=== PATIENT | female | born 1995 | race Caucasian/White ===

== ENCOUNTER 2019-07-19 08:22 | Inpatient (IN) ==
[2019-07-19] MEDS ORDERED: OXYTOCIN/DEXTROSE 5%-WATER 30 UNITS/500 ML BAG IV ONE (09:56)
[2019-07-19] MEDS ORDERED: DEXTROSE 5%-LACTATED RINGERS 1,000 ML IV PRN (09:56)
[2019-07-19] MEDS ORDERED: ONDANSETRON 4 MG TAB.RAPDIS PO PRN (09:56)
[2019-07-19] MEDS: RINGER'S SOLUTION,LACTATED 1,000 ML IV ONE ×2 (10:05→20:18)
--- NOTE | 2019-07-19 14:42 | HP ---
Chief Complaint - Chief Complaint Date of Service: 07/19/19 Time of Service: 14:31 Chief Complaint: LOF History of Present Illness: 23 yo at 37 5/7 wks presents to L&D for SROM with early labor. Patient had gush of fluid around 729, followed by constant LOF down leg since then. She also complains of mild cramping. This complicated by anemia and new onset arrhythmia noticed yesterday when being evaluated for decreased FM. The arrhythmia is an occasional intermittent skip beat. Rh positive Rubella immune GBS negative Medical History (Updated 07/19/19 @ 11:44 by Iveth Monaco RN) Anemia (Acute) Onset Date: 12/27/18 w/ Body piercing Onset Date: Unknown Stye Onset Date: ~2009 w/removal Surgical History: Surgical History (Updated 12/23/18 @ 16:42 by Tequila Allen RN) No Surgical History Onset Date: 12/23/18 Family History: Family History (Updated 12/23/18 @ 16:43 by Tequila Allen RN) Mother Alive and well Father Diabetes Type II Hypertension Social History: (Last Reviewed 07/19/19 @ 14:37 by Giovanny Nova DO) Social History: adopted: No senior care: No Marital status: household members: spouse, family number of children: 0 current occupational status: employed current occupation: RN current occupational exposures/hazards: No Highest education level completed: Associate degree: academi Sexually Active: Yes Service: No Tobacco: Smoking Status: Never smoker Alcohol: alcohol intake: current alcohol intake frequency: holiday/special occasion details: No alcohol since + UPT Substance Use: substance use type: does not use Dietary Habits: caffeine: Yes caffeine comment: 1/week Exercise: frequency: does not exercise Belén/Voodoo: agree to transfusion: Yes Review Of Systems (GEN) - Review of Systems Generalized/Overall Review: Present: No Symptoms Reported EENTM: Present: No Symptoms Reported Respiratory: Present: No Symptoms Reported Cardiac: Present: No Symptoms Reported Abdominal: Present: Other - cramping/contractions Genitourinary: Present: Other - LOF Musculoskeletal: Present: No Symptoms Reported Neurological: Present: No Symptoms Reported Skin: Present: No Symptoms Reported Allergies/Adverse Reactions: Allergies Allergy/AdvReac Type Severity Reaction Status Date / Time No Known Allergies Allergy Verified 07/19/19 08:44 Home Medications: HOME MEDICATIONS vitamins no.121-iron 28 mg-folic acid 800 mcg tablet 1 tab PO DAILY tab 12/23/18 [Last Taken Unknown] ferrous sulfate 325 mg (65 mg iron) tablet 325 mg PO DAILY #30 tab 12/28/18 [Last Taken Unknown] ascorbic acid (vitamin C) 500 mg tablet 500 mg PO DAILY 05/01/19 [Last Taken Unknown] breast pump See Dose Instructions .ROUTE .MEDSUPPLY #1 ea 06/08/19 [Last Taken Unknown] Exam - Exam Vital Signs: Vital Signs - Last Taken Temp 37.1 C 07/19/19 09:03 Pulse 89 07/19/19 09:03 Resp 18 07/19/19 09:03 BP 142/81 H 07/19/19 09:03 Pulse Ox 100 07/19/19 09:03 Constitutional: Present: Alert, Oriented x3, Cooperative ENT Exam: Present: hearing grossly normal Breasts: Present: Exam deferred Respiratory: Present: lungs clear, no respiratory distress Cardiovascular/Chest: Present: regular rate, rhythm, no edema Abdomen: Present: soft, nontender, other - Gravid /Rectal: Present: Other - Cervix 1/50/-2, Clear fluid, nitrazine positive Extremity: Present: no pedal edema, no calf tenderness Skin Exam: Present: normal color, warm/dry, no cyanosis Neurologic: Present: alert, normal mood/affect, oriented x 3 Appearance: Present: appropriate appearance, appropriate insight Eye contact: Present: cooperative, good eye contact Thoughts: Present: normal thought pattern Diagnostic Studies: NST reactive. Assessment/Plan - Assessment/Plan (1) Rupture of membranes with clear amniotic fluid Assessment: Admit for routine management of labor. Pitocin augmentation PRN. Epidural PRN. evaluation after delivery. Problem: Acute (2) 37 or more weeks gestation of Problem: Acute (3) Anemia Problem: Acute Qualifiers: Anemia type: iron deficiency Iron deficiency anemia type: inadequate dietary iron intake Qualified Code(s): D50.8 - Other iron deficiency anemias (4) cardiac arrhythmia Assessment: irregular, intermittent, no calvin or tachy arrhythmia. Evaluate PP. Problem: Acute
--- NOTE | 2019-07-19 14:45 | PN ---
Progess Note - Interim Date: 07/19/19 Time: 14:43 Narrative: 07/19/19 14:43 Patient rating contractions 5 out of 10. Vital signs stable. Pitocin at 1 mu/min. FHT: 135 baseline, reassuring contractions q 1-2 min Cervix: Deferred Impression: Intrauterine at 37-5/7 weeks in labor with spontaneous rupture of membranes since 729. Plan: We will DC pitocin due to contractions close together.
--- NOTE | 2019-07-19 16:05 | PN ---
Progess Note - Interim Date: 07/19/19 Time: 16:02 Narrative: 07/19/19 16:02 Patient complaining of more pressure with contractions Vital signs stable. FHT: 120 baseline, reassuring, occasional irregular beat a few times every hour Contractions q 2 min Cervix: /-2 Impression: Intrauterine at 37 5/7 weeks in labor with spontaneous rupture of membranes since 729 Plan: Continue present plan
[2019-07-19 17:14] LABS: Cocaine Ur Negative (NEGATIVE); Urine Barbiturate Negative (NEGATIVE); Urine Benzodiazepines Negative (NEGATIVE); Urine Opiates Negative (NEGATIVE); Urine PCP Negative (NEGATIVE); Urine THC Negative (NEGATIVE)
[2019-07-19] MEDS ORDERED: BUPIVACAINE HCL/0.9 % NACL/PF 250 ML EP PRN (19:25)
[2019-07-19] MEDS ORDERED: NALOXONE HCL 1 MG/1 ML SYRG IV PRN (19:25)
[2019-07-19] MEDS ORDERED: BUPIVACAINE HCL/PF 30 ML VIAL EP SCH (19:30)
--- NOTE | 2019-07-19 19:57 | ANES ---
Anesthesia Pre Procedure Eval Vitals/Labs: Last Vital Signs Temp 37.1 C 07/19/19 09:03 Pulse 89 07/19/19 09:03 Resp 18 07/19/19 09:03 BP 142/81 H 07/19/19 09:03 Pulse Ox 100 07/19/19 09:03 HOME MEDICATIONS vitamins no.121-iron 28 mg-folic acid 800 mcg tablet 1 tab PO DAILY tab 12/23/18 [Last Taken Unknown] ferrous sulfate 325 mg (65 mg iron) tablet 325 mg PO DAILY #30 tab 12/28/18 [Last Taken Unknown] ascorbic acid (vitamin C) 500 mg tablet 500 mg PO DAILY 05/01/19 [Last Taken Unknown] breast pump See Dose Instructions .ROUTE .MEDSUPPLY #1 ea 06/08/19 [Last Taken Unknown] Allergies/Adverse Reactions: Allergies Allergy/AdvReac Type Severity Reaction Status Date / Time No Known Allergies Allergy Verified 07/19/19 08:44 - Planned Procedure Planned Procedure: labor epidural Medication List Reviewed:: Yes Allergies Verified: Yes Medical History (Updated 07/19/19 @ 14:42 by Giovanny Nova DO) Anemia (Acute) Onset Date: 12/27/18 w/ Body piercing Onset Date: Unknown Stye Onset Date: ~2009 w/removal Surgical History (Updated 07/19/19 @ 14:42 by Giovanny Nova DO) No Surgical History Onset Date: 12/23/18 Family History (Updated 12/23/18 @ 16:43 by Tequila Allen RN) Mother Alive and well Father Diabetes Type II Hypertension - Cardiovascular Tolerate Activity: Good Heart Sounds: S1 & S2, Regular - Anesthesia Assessment and Plan ASA Class: PS, II Anesthesia Type Plan: Epidural
--- NOTE | 2019-07-19 20:14 | ANES ---
Anesthesia Procedure Note Procedure Note: ANESTHESIA PROCEDURE NOTE Date of Procedure: 07/19/2019. Time of procedure: 1999. Performed by: John Caldwell CRNA Clinical Nursing Professor: None. Preprocedure diagnosis: Active labor. Post procedure diagnosis: Same. Procedure: Insertion of labor epidural. Indications: The patient is a 23-year-old female in active labor requesting labor epidural for pain management. Findings: See below. Details of the procedure: The patient was placed in a sitting position. DuraPrep as well as Betadine swabs X3 was applied to the patient's back. Patient was then draped in a sterile fashion. Lidocaine 1% was infiltrated to the skin and subcutaneous tissues at the level of the L3-4 interspace. The epidural space was identified using a 18-gauge Tuohy needle with [id number] technique. Epidural catheter was inserted to a depth of 11 centimeters at skin. Negative test dose was elicited using 3 mL of 1.5% preservative-free lidocaine plus epinephrine 1 200,000. The epidural catheter was then taped and secured in place. A loading dose of 8 mL of 0.25% preservative-free bupivacaine was administered to the epidural catheter after negative aspiration for blood and CSF. EBL: Minimal. Fluids: N/A. Specimen: N/A. Post procedure condition: The patient tolerated the procedure well. No complications were noted. Thank you for this consultation. John Caldwell CRNA
--- NOTE | 2019-07-19 20:16 | ANES ---
Post Anesthesia Assessment - Vital Signs Vitals: Last Vital Signs Temp 37.1 C 07/19/19 20:15 Pulse 98 07/19/19 20:15 Resp 20 07/19/19 20:15 BP 143/82 H 07/19/19 20:15 Pulse Ox 99 07/19/19 20:15 Airway Patency: Normal - Mental Status Level Of Consciousness: Awake - N/V Assessment Nausea/Vomiting Presence: None Dehydration:: No
[2019-07-19] MEDS: ONDANSETRON HCL/PF 2 MG/ML VIAL IV PRN (20:56)
[2019-07-20] MEDS: ONDANSETRON HCL/PF 2 MG/ML VIAL IV PRN ×2 (02:47→08:34)
[2019-07-20] MEDS ORDERED: BUPIVACAINE HCL/0.9 % NACL/PF 250 ML EP PRN (05:06)
--- NOTE | 2019-07-20 10:50 | OR ---
Operative Report - Dictated Report Narrative: Spontaneous vaginal delivery of viable male at 1025 on 07/20/2019 with Apgars 8 and 9, weighing 3758 g in ZENY position. Cord clamping delayed approximately 1 minute Placenta delivered complete, intact, with three vessel cord Estimated blood loss: 100 mL Anesthesia: Epidural Lacerations: 2 cm second-degree vaginal laceration repaired with 3-0 Vicryl Rapide. History for MU History for Definition: * The number of deliveries resulting in a live the patient experienced prior to current hospitalization * The previous delivery of live twins or any live multiple gestation is c onsidered one live event. *If primagravida or nulliparous is documented select zero for the number of previous live births. Live Events: Live Events: 0
[2019-07-20] MEDS ORDERED: GLYCERIN/WITCH HAZEL LEAF 40 APPL BOX TP PRN (15:23)
[2019-07-20] MEDS ORDERED: OXYTOCIN/DEXTROSE 5%-WATER 30 UNITS/500 ML BAG IV ONE (15:23)
[2019-07-20] MEDS ORDERED: BENZOCAINE/MENTHOL 81 SPRAY CAN TP PRN (15:23)
[2019-07-20] MEDS ORDERED: oxyCODONE HCL/ACETAMINOPHEN 1 TAB TABLET PO PRN (15:23)
[2019-07-20] MEDS ORDERED: HYDROCORTISONE 30 APPL TUBE TP PRN (15:23)
[2019-07-20] MEDS ORDERED: IBUPROFEN 800 MG TABLET PO PRN (15:23)
[2019-07-20] MEDS ORDERED: SENNOSIDES 8.6 MG TABLET PO PRN (15:23)
[2019-07-20] MEDS ORDERED: BISACODYL 10 MG SUPP.RECT RC PRN (15:23)
[2019-07-20] MEDS: IBUPROFEN 800 MG TABLET PO PRN ×2 (15:39→21:37)
[2019-07-20] MEDS: DOCUSATE SODIUM 100 MG CAPSULE PO SCH (21:37)
[2019-07-21] MEDS: IBUPROFEN 800 MG TABLET PO PRN ×2 (05:22→13:28)
[2019-07-21] MEDS ORDERED: ASCORBIC ACID 500 MG TABLET PO SCH (09:00)
[2019-07-21] MEDS ORDERED: PRENATAL VITS96/IRON FUM/FOLIC 1 TAB TABLET PO SCH (09:00)
[2019-07-21] MEDS ORDERED: FERROUS SULFATE 325 MG TABLET PO SCH (09:00)
[2019-07-21] MEDS: DOCUSATE SODIUM 100 MG CAPSULE PO SCH (10:18)
--- NOTE | 2019-07-21 16:33 | PN ---
Subjective - Date and Time Seen Date: 07/21/19 Time: 16:32 - Seen this a.m. Objective - Vitals Vitals: Last Vital Signs Temp 36.4 C 07/21/19 13:32 Pulse 98 07/21/19 13:32 Resp 16 07/21/19 13:32 BP 115/73 07/21/19 13:32 Pulse Ox 98 07/21/19 13:32 Patient denies complaints. Lochia wnl abdomen - soft, nontender Uterus -firm, at umbilicus - 1 no calf tenderness Impression: day #1 - s/p spontaneous vaginal delivery. Plan: Continue routine care Cauti Physician Documentation - Urinary Catheter Management Urethral ([place]) Date of Insertion: 07/19/19 Time of Insertion: 20:43 Assessment/Plan - Problems/Diagnosis (1) Rupture of membranes with clear amniotic fluid Problem: Acute (2) 37 or more weeks gestation of Problem: Acute (3) Anemia Problem: Acute Qualifiers: Anemia type: iron deficiency Iron deficiency anemia type: inadequate d ietary iron intake Qualified Code(s): D50.8 - Other iron deficiency anemias (4) cardiac arrhythmia Problem: Acute
[2019-07-22] MEDS: IBUPROFEN 800 MG TABLET PO PRN (04:54)
[2019-07-22] MEDS: DOCUSATE SODIUM 100 MG CAPSULE PO SCH ×2 (05:00→09:34)
[2019-07-22 08:12] VITALS: BP 116/81
--- NOTE | 2019-07-22 09:37 | PN ---
Subjective - Date and Time Seen Date: 07/22/19 Time: 09:36 Objective - Vitals Vitals: Last Vital Signs Temp 36.3 C 07/22/19 07:57 Pulse 77 07/22/19 07:57 Resp 16 07/22/19 07:57 BP 116/81 07/22/19 07:57 Pulse Ox 99 07/22/19 00:20 Patient denies complaints. Lochia wnl abdomen - soft, nontender Uterus -firm, at umbilicus - 2 no calf tenderness Impression: day #2 - s/p spontaneous vaginal delivery. Plan: Routine discharge instructions Cauti Physician Documentation - Urinary Catheter Management Urethral ([place]) Date of Insertion: 07/19/19 Time of Insertion: 20:43 Assessment/Plan - Problems/Diagnosis (1) Rupture of membranes with clear amniotic fluid Problem: Acute (2) 37 or more weeks gestation of Problem: Acute (3) Anemia Problem: Acute Qualifiers: Anemia type: iron deficiency Iron deficiency anemia type: inadequate dietary iron intake Qualified Code(s): D50.8 - Other iron deficiency anemias (4) cardiac arrhythmia Problem: Acute
== END 2019-07-22 12:45 | disposition home or self-care (01) | DRG 807 ==
LOC: OB 08:22 → MS 07-20 18:52
PROVIDERS: ADMIT Obstetrics & Gynecology; ATTEND Obstetrics & Gynecology
CPT/HCPCS: 59025; 80307; J2405